=== PATIENT | male | born 1945 ===

== ENCOUNTER 2020-09-06 08:42 | Outpatient (CLI) | payer OTHER, MEDICARE | END 2020-09-06 19:36 | disposition home or self-care (01) | LOC: INF 08:42 | PROVIDERS: ATTEND Internal Medicine | DX: Z23 Encounter for immunization (principal) | CPT/HCPCS: 96372 ==

== ENCOUNTER 2020-09-26 08:14 | Outpatient (CLI) | payer OTHER, MEDICARE | END 2020-09-26 19:50 | disposition home or self-care (01) | LOC: INF 08:14 | PROVIDERS: ATTEND Internal Medicine | DX: Z23 Encounter for immunization (principal) | CPT/HCPCS: 96372 ==